=== PATIENT | male | born 1970 | race African-American/Black ===

== ENCOUNTER 2018-09-22 06:53 | Emergency (ER) | payer OTHER, BC ==
[2018-09-22] MEDS ORDERED: Acetaminophen 325 MG Tab PO ONE (07:07)
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
[2018-09-22] MEDS ORDERED: cloNIDine 0.1 MG Tab PO ONE (07:49)
--- NOTE | 2018-09-22 10:51 | CR ---
Pelvis and right hip: AP view of the pelvis was obtained centered at the hips. AP and frog-leg lateral view of the right hip was also obtained. Small detached bony densities are noted off of both superior acetabulum which is a normal variant. Mild joint space narrowing is seen superiorly within the right hip. No acute fracture or other bony abnormality is seen. Impression: 1. Mild degenerative change within the right hip. 2. Other incidental findings. Nothing acute is appreciated. Diagnostic code #2 MTDD
--- NOTE | 2018-09-22 10:52 | CR ---
Left tibia and fibula: AP and lateral views of the left tibia and fibula were obtained. Comparison: No previous study. No fracture or other abnormality is identified. Impression: 1. No abnormality is seen on two-view left tibia and fibula exam. Diagnostic code #1 MTDD
== END 2018-09-22 09:09 | disposition home or self-care (01) ==
LOC: JD.ED 06:53
DX: S70.01XA Contusion of right hip, initial encounter (principal); S80.12XA Contusion of left lower leg, initial encounter; V67.5XXA Driver of heavy transport vehicle injured in collision with fixed or stationary object in traffic accident, initial encounter
CPT/HCPCS: 73502; 73590; 99284; A9270; 99283